=== PATIENT | male | born 1985 | race Caucasian/White ===

== ENCOUNTER 2021-03-04 12:58 | Observation (INO) | payer OTHER ==
[~2021-03-04 12:58] MED LIST: Zofran 4 MG/2 ML VIAL ONE
[2021-03-04] MEDS ORDERED: Zofran 4 MG/2 ML VIAL IV ONE (12:59)
--- NOTE | 2021-03-04 13:30 | ERPHSYRPT ---
- History of Present Illness Source: patient, other (Father) Exam Limitations: other (Pt poor historian) Patient Subjective Stated Complaint: vomiting on arrival, not feeling/acting himself. father came to pick him up to take him to methadone clinic today and noticed pts behavior. pt also was at gas station yesterday afternoon "acting drunk." Triage Nursing Assessment: pt to ED with father with c/o "not acting right." pt goes to methadone clinic and reports being clean for 1 year. pt was at gas station yesterday and PD was called d/t staff reprting that pt was "acting drunk." pts father went to his home today to take him to methadone clinic and noticed pts behavior and brought him immediately to ED. pt did vomit once per father and once more on arrival to ED, denies pain. A&Ox3. skin clammy and pallor. lungs clear and equal bilat, heart sounds clear. Physician History: 35 yo wm w mental status changes which were noticed by his father when he picked him up to take him to his methadone clinic appointment. Pt's SO told his father that he was acting odd at a gas station yesterday. Police were called and thought that pt was intoxicated. Pt arrived somewhat lethargic but with a good airway. He is nauseated and vomited upon arrival. Pt has a small abrasion L periorbital area and gives a vague h/o falling. He did receive his Methadone dose yesterday. Pt denies any alcohol/street drug use. No focal weakness observed. Timing/Duration: yesterday Severity: mild Character of Deficits: altered sensation Deficits: weak Baseline/Normal Cognition: poor alertness (somewhat lethargic but oriented x 3 ) Baseline Gait: walks w/o assistance Associated Symptoms: confusion, fatigue, nausea, vomiting, weakness, No fever, No chills, No loss of consciousness, No insomnia, No muscle spasms, No numbness/tingling in legs/feet, No paresthesia, No ringing in ears, No seizures, No slurred speech, No trouble walking, No vision changes, No chest pain Allergies/Adverse Reactions: No Known Drug Allergies Allergy (Verified 03/04/21 13:19) Home Medications: Cholecalciferol (Vitamin D3) [Vitamin D3] 5,000 unit PO UD 03/04/21 [History] Eszopiclone [Lunesta] 3 mg PO HS 03/04/21 [History] Gabapentin 300 mg [Neurontin 300 mg] 300 mg PO TID 03/04/21 [History] Lisinopril 20 mg [Zestril 20 MG] 40 mg PO DAILY 03/04/21 [History] Sertraline HCl [Zoloft] 100 mg PO DAILY 03/04/21 [History] Simvastatin 80 mg PO DAILY 03/04/21 [History] Hx Tetanus, Diphtheria Vaccination/Date Given: Yes Hx Influenza Vaccination/Date Given: Yes Hx Pneumococcal Vaccination/Date Given: No Immunizations Up to Date: Yes Travel Risk - International Travel Have you traveled outside of the country in past 3 weeks: No - Coronavirus Screening Are you exhibiting any of the following symptoms?: Yes Symptoms: Vomiting/Diarrhea Close contact with a COVID-19 positive Pt in past 14-21 Days: No - Vaccine Status Have you recieved a Covid-19 vaccination: No Personnel Specialist: Moderna - Vaccination Dates Date of 2cond Vaccination (if applicable): unk - Review of Systems Constitutional: No Symptoms, Lethargy, Weakness Eyes: No Symptoms Ears, Nose, & Throat: No Symptoms Respiratory: No Symptoms Cardiac: No Symptoms Abdominal/Gastrointestinal: No Symptoms, Nausea, Vomiting Genitourinary Symptoms: No Symptoms Musculoskeletal: No Symptoms Skin: No Symptoms Neurological: No Symptoms, Lethargy Psychological: Other (Methadone clinic pt) Endocrine: No Symptoms Hematologic/Lymphatic: No Symptoms Immunological/Allergic: No Symptoms - Past Medical History Pertinent Past Medical History: No - Past Surgical History Past Surgical History: No - Social History Smoking Status: Never smoker Exposure to second hand smoke: No Drug Use: narcotics, other Patient Lives Alone: No Significant Family History: no pertinent family hx - Nursing Vital Signs Nursing Vital Signs: Initial Vital Signs Pulse Rate 92 H 03/04/21 12:58 Respiratory Rate 20 03/04/21 12:58 Blood Pressure 171/102 03/04/21 12:58 O2 Sat by Pulse Oximetry 98 03/04/21 12:58 Pain Scale Pain Intensity 0 Hypertensive - [place] Coma Scale Best Eye Response ([place]): (3) open to voice Best Verbal Response ([place]): (5) oriented Best Motor Response ([place]): (6) obeys commands [place] Total: 14 - Physical Exam General Appearance: lethargy Eye Exam: bilateral eye: normal inspection, PERRL, EOMI Ears, Nose, Throat Exam: normal ENT inspection, TMs normal, pharynx normal, moist mucous membranes Neck Exam: normal inspection, non-tender, supple, full range of motion, No meningismus, No mass, No Brudzinski, No Kernig's, No carotid bruit Respiratory: normal breath sounds, lungs clear, airway intact, No respiratory distress Cardiovascular: regular rate/rhythm, normal heart sounds, No murmur Gastrointestinal: soft, normal bowel sounds, No tenderness Back Exam: normal inspection, normal range of motion Extremity Exam: normal inspection, normal range of motion, pelvis stable Peripheral Pulses: carotid (R): 2+, carotid (L): 2+ Mental Status: oriented x 3, lethargy employment service specialist Exam: normal hearing, normal speech, PERRL, No abnormal eye position, No abnormal gag reflex Motor/Sensory: no motor deficit DTR: bicep (R): 2+, bicep (L): 2+ Skin Exam: pale SpO2 Interpretation: normal SpO2: 98 O2 Delivery: Room Air - Course EKG Interpreted by Me: RATE (NSR/R89/Flat T waves/Borderline prolonged QTc/No acute ST changes) - CT Exams Head CT Interpretation: Discussed w/radiologist (NAD) Ordered Tests: Active Orders 24 hr Category Date Time Status Wireless Internet Installer STAT Care 03/04/21 13:04 Completed EKG-ER Only STAT Care 03/04/21 13:00 Completed IV Insertion STAT Care 03/04/21 13:00 Completed cath [Cath for Specimen-Straight] STAT Care 03/04/21 14:25 Completed NPO Diet 03/04/21 15:57 Active HEAD WITHOUT CONTRAST [CT] Stat Exams 03/04/21 13:15 Completed ACETAMINOPHEN Stat Lab 03/04/21 13:55 Completed AMYLASE Stat Lab 03/04/21 13:55 Completed CBC W DIFF AM.LAB Lab 03/05/21 04:00 Ordered CBC W DIFF Stat Lab 03/04/21 13:55 Completed CMP AM.LAB Lab 03/05/21 04:00 Ordered CMP Stat Lab 03/04/21 13:55 Completed ETHYL ALCOHOL Stat Lab 03/04/21 13:55 Completed LIPASE Stat Lab 03/04/21 13:55 Completed SALICYLATE Stat Lab 03/04/21 13:55 Completed TROPONIN Q3H Lab 03/04/21 13:55 Completed TROPONIN Q3H Lab 03/04/21 15:37 Completed TROPONIN Q3H Lab 03/04/21 18:43 Completed TROPONIN Q3H Lab 03/04/21 22:00 Ordered TROPONIN Q3H Lab 03/05/21 01:00 Ordered UA W/RFX UR CULTURE Stat Lab 03/04/21 14:24 Completed Urine Triage Profile Stat Lab 03/04/21 14:24 Completed Transfer Order Routine Transfer 03/04/21 Completed Medication Summary Generic Name Dose Route Start Last Admin Trade Name Fremartinez PRN Reason Stop Dose Admin Gabapentin 300 mg 03/04/21 22:00 Neurontin 300 Mg PO 04/03/21 21:59 TID BESSY Sodium Chloride 1,000 mls @ 100 mls/hr 03/04/21 16:00 03/04/21 16:18 Sodium Chloride 0.9% 1000 Ml IV 04/03/21 15:59 100 mls/hr .Q10H BESSY Administration Ketorolac Tromethamine 30 mg 03/04/21 15:56 Toradol 30 Mg Injection IV 03/09/21 15:55 Q6H PRN PRN PAIN Nicotine 14 mg 03/04/21 19:00 Nicoderm Cq 14 Mg TOP 04/03/21 18:59 Q24H BESSY Ondansetron HCl 4 mg 03/04/21 15:56 Zofran 4 Mg/2 Ml Vial IV 04/03/21 15:55 Q6H PRN PRN NAUSEA/VOMITING Pantoprazole Sodium 40 mg 03/05/21 10:00 Protonix 40 Mg Iv IV 04/04/21 09:59 Q24H10 BESSY Zolpidem Tartrate 10 mg 03/04/21 22:00 Ambien 10 Mg PO 04/03/21 21:59 HS BESSY Discontinued Medications Generic Name Dose Route Start Last Admin Trade Name Fremartinez PRN Reason Stop Dose Admin Ondansetron HCl 4 mg 03/04/21 12:59 03/04/21 13:03 Zofran 4 Mg/2 Ml Vial IV 03/04/21 13:00 4 mg STAT ONE Administration Lab/Rad Data: Laboratory Result Diagrams 03/04/21 13:55 03/04/21 13:55 Laboratory Results 03/04/21 03/04/21 03/04/21 Range/Units 16:08 15:37 14:24 WBC (4.0-10.5) K/mm3 RBC (4.1-5.6) M/mm3 Hgb (12.5-18.0) gm/dl Hct (42-50) % MCV (78-100) fl MCH (26-32) pg MCHC (32-36) g/dl RDW (11.5-14.0) % Plt Count (150-450) K/mm3 MPV (7.5-11.0) fl Gran % (36.0-66.0) % Eos # (Auto) (0-0.5) Absolute Lymphs (auto) (1.0-4.6) Absolute Monos (auto) (0.0-1.3) Lymphocytes % (24.0-44.0) % Monocytes % (0.0-12.0) % Eosinophils % (0.00-5.0) % Basophils % (0.0-0.4) % Absolute Granulocytes (1.4-6.9) Basophils # (0-0.4) Sodium (137-145) mmol/L Potassium (3.5-5.1) mmol/L Chloride (98-107) mmol/L Carbon Dioxide (22-30) mmol/L Anion Gap (5-15) MEQ/L BUN (9-20) mg/dL Creatinine (0.66-1.25) mg/dL Estimated GFR ML/MIN Glucose (74-106) mg/dL Calcium (8.4-10.2) mg/dL Total Bilirubin (0.2-1.3) mg/dL AST (17-59) U/L ALT (0-50) U/L Alkaline Phosphatase (38-126) U/L Troponin I < 0.012 (0.000-0.034) ng/mL Serum Total Protein (6.3-8.2) g/dL Albumin (3.5-5.0) g/dL Amylase (30-110) U/L Lipase (23-300) U/L Urine Color (YELLOW) Urine Appearance (CLEAR) Urine pH (5-6) Ur Specific [place] (1.005-1.025) Urine Protein (Negative) Urine Ketones (NEGATIVE) Urine Blood (0-5) Asad/ul Urine Nitrite (NEGATIVE) Urine Bilirubin (NEGATIVE) Urine Urobilinogen (0-1) mg/dL Ur Leukocyte Esterase (NEGATIVE) Urine WBC (Auto) (0-5) /HPF Urine RBC (Auto) (0-2) /HPF U Epithel Cells (Auto) (FEW) /HPF Urine Bacteria (Auto) (NEGATIVE) /HPF Urine Mucus (Auto) (NEGATIVE) /HPF Urine Culture Reflexed (NO) Urine Glucose (NEGATIVE) mg/dL Salicylates (2-20) mg/dL Urine Opiates Level NEGATIVE (NEGATIVE) Ur Methadone POSITIVE (NEGATIVE) Acetaminophen (10-30) ug/ml Urine Barbiturates NEGATIVE (NEGATIVE) Ur Phencyclidine (PCP) NEGATIVE (NEGATIVE) Urine Amphetamine NEGATIVE (NEGATIVE) U Benzodiazepine Level POSITIVE (NEGATIVE) Urine Cocaine NEGATIVE (NEGATIVE) Urine Marijuana (THC) NEGATIVE (NEGATIVE) Ethyl Alcohol (0-10) mg/dL SARS-CoV-2 (PCR) NEGATIVE (NEGATIVE) Slides for Path Review 03/04/21 03/04/21 03/04/21 Range/Units 14:24 13:55 13:55 WBC (4.0-10.5) K/mm3 RBC (4.1-5.6) M/mm3 Hgb (12.5-18.0) gm/dl Hct (42-50) % MCV (78-100) fl MCH (26-32) pg MCHC (32-36) g/dl RDW (11.5-14.0) % Plt Count (150-450) K/mm3 MPV (7.5-11.0) fl Gran % (36.0-66.0) % Eos # (Auto) (0-0.5) Absolute Lymphs (auto) (1.0-4.6) Absolute Monos (auto) (0.0-1.3) Lymphocytes % (24.0-44.0) % Monocytes % (0.0-12.0) % Eosinophils % (0.00-5.0) % Basophils % (0.0-0.4) % Absolute Granulocytes (1.4-6.9) Basophils # (0-0.4) Sodium 140 (137-145) mmol/L Potassium 3.7 (3.5-5.1) mmol/L Chloride 101 (98-107) mmol/L Carbon Dioxide 26 (22-30) mmol/L Anion Gap 16.5 H (5-15) MEQ/L BUN 12 (9-20) mg/dL Creatinine 0.80 (0.66-1.25) mg/dL Estimated GFR > 60.0 ML/MIN Glucose 126 H (74-106) mg/dL Calcium 9.2 (8.4-10.2) mg/dL Total Bilirubin 0.40 (0.2-1.3) mg/dL AST 26 (17-59) U/L ALT 14 (0-50) U/L Alkaline Phosphatase 94 (38-126) U/L Troponin I (0.000-0.034) ng/mL Serum Total Protein 8.1 (6.3-8.2) g/dL Albumin 4.6 (3.5-5.0) g/dL Amylase 73 (30-110) U/L Lipase 63 (23-300) U/L Urine Color YELLOW (YELLOW) Urine Appearance CLEAR (CLEAR) Urine pH 8.0 (5-6) Ur Specific [place] 1.021 (1.005-1.025) Urine Protein 30 (Negative) Urine Ketones NEGATIVE (NEGATIVE) Urine Blood NEGATIVE (0-5) Asad/ul Urine Nitrite NEGATIVE (NEGATIVE) Urine Bilirubin NEGATIVE (NEGATIVE) Urine Urobilinogen NEGATIVE (0-1) mg/dL Ur Leukocyte Esterase TRACE (NEGATIVE) Urine WBC (Auto) 0-2 (0-5) /HPF Urine RBC (Auto) 11-15 (0-2) /HPF U Epithel Cells (Auto) NONE (FEW) /HPF Urine Bacteria (Auto) NONE (NEGATIVE) /HPF Urine Mucus (Auto) SLIGHT (NEGATIVE) /HPF Urine Culture Reflexed NO (NO) Urine Glucose NEGATIVE (NEGATIVE) mg/dL Salicylates < 1.0 L (2-20) mg/dL Urine Opiates Level (NEGATIVE) Ur Methadone (NEGATIVE) Acetaminophen < 10 L (10-30) ug/ml Urine Barbiturates (NEGATIVE) Ur Phencyclidine (PCP) (NEGATIVE) Urine Amphetamine (NEGATIVE) U Benzodiazepine Level (NEGATIVE) Urine Cocaine (NEGATIVE) Urine Marijuana (THC) (NEGATIVE) Ethyl Alcohol < 10 (0-10) mg/dL SARS-CoV-2 (PCR) (NEGATIVE) Slides for Path Review 03/04/21 03/04/21 Range/Units 13:55 13:55 WBC 8.2 (4.0-10.5) K/mm3 RBC 4.15 (4.1-5.6) M/mm3 Hgb 12.4 L (12.5-18.0) gm/dl Hct 38.0 L (42-50) % MCV 91.6 (78-100) fl MCH 29.9 (26-32) pg MCHC 32.6 (32-36) g/dl RDW 13.2 (11.5-14.0) % Plt Count 192 (150-450) K/mm3 MPV 10.3 (7.5-11.0) fl Gran % 89.0 H (36.0-66.0) % Eos # (Auto) 0.02 (0-0.5) Absolute Lymphs (auto) 0.54 L (1.0-4.6) Absolute Monos (auto) 0.33 (0.0-1.3) Lymphocytes % 6.6 L (24.0-44.0) % Monocytes % 4.0 (0.0-12.0) % Eosinophils % 0.2 (0.00-5.0) % Basophils % 0.2 (0.0-0.4) % Absolute Granulocytes 7.26 H (1.4-6.9) Basophils # 0.02 (0-0.4) Sodium (137-145) mmol/L Potassium (3.5-5.1) mmol/L Chloride (98-107) mmol/L Carbon Dioxide (22-30) mmol/L Anion Gap (5-15) MEQ/L BUN (9-20) mg/dL Creatinine (0.66-1.25) mg/dL Estimated GFR ML/MIN Glucose (74-106) mg/dL Calcium (8.4-10.2) mg/dL Total Bilirubin (0.2-1.3) mg/dL AST (17-59) U/L ALT (0-50) U/L Alkaline Phosphatase (38-126) U/L Troponin I < 0.012 (0.000-0.034) ng/mL Serum Total Protein (6.3-8.2) g/dL Albumin (3.5-5.0) g/dL Amylase (30-110) U/L Lipase (23-300) U/L Urine Color (YELLOW) Urine Appearance (CLEAR) Urine pH (5-6) Ur Specific [place] (1.005-1.025) Urine Protein (Negative) Urine Ketones (NEGATIVE) Urine Blood (0-5) Asad/ul Urine Nitrite (NEGATIVE) Urine Bilirubin (NEGATIVE) Urine Urobilinogen (0-1) mg/dL Ur Leukocyte Esterase (NEGATIVE) Urine WBC (Auto) (0-5) /HPF Urine RBC (Auto) (0-2) /HPF U Epithel Cells (Auto) (FEW) /HPF Urine Bacteria (Auto) (NEGATIVE) /HPF Urine Mucus (Auto) (NEGATIVE) /HPF Urine Culture Reflexed (NO) Urine Glucose (NEGATIVE) mg/dL Salicylates (2-20) mg/dL Urine Opiates Level (NEGATIVE) Ur Methadone (NEGATIVE) Acetaminophen (10-30) ug/ml Urine Barbiturates (NEGATIVE) Ur Phencyclidine (PCP) (NEGATIVE) Urine Amphetamine (NEGATIVE) U Benzodiazepine Level (NEGATIVE) Urine Cocaine (NEGATIVE) Urine Marijuana (THC) (NEGATIVE) Ethyl Alcohol (0-10) mg/dL SARS-CoV-2 (PCR) (NEGATIVE) Slides for Path Review YES - Progress Progress: improved Progress Note: 03/04/21 15:[address] Bal 03/04/21 16:00 Pt w good airway the entire visit but somewhat lethargic, so admitted for observation. 03/04/21 19:25 Pt's lethargy most likely due to Benzo use which is not prescribed per Inspect report. Discussed with : Juan Luis Counseled pt/family regarding: lab results, diagnosis, rad results - Departure Departure Disposition: Observation Clinical Impression: Polysubstance abuse Condition: Stable Critical Care Time: No
--- NOTE | 2021-03-04 13:39 | XRAY ---
Indication: Mental status change. Left eye contusion. Multiple contiguous axial images obtained through the head without contrast. Comparison: None Anatomic variant for cavum septum callosum. No acute intracranial hemorrhage, abnormal extra-axial fluid collection, or mass effect. Fourth ventricle is midline without hydrocephalus. Mata-white matter differentiation preserved. Bony calvarium intact. Visualized paranasal sinuses and mastoid air cells are clear. Impression: Normal CT head without contrast exam.
[2021-03-04 14:04] LABS: Absolute Neutrophil Ct (ANC) 7.26 (1.4-6.9); BASOPHIL % 0.2 % (0.0-0.4); Basophil (Absolute #) 0.02 (0-0.4); Eosinophil % 0.2 % (0.00-5.0); Eosinophil (Absolute #) 0.02 (0-0.5); Hemoglobin 12.4 gm/dl (12.5-18.0); Lymphocyte (Absolute #) 0.54 (1.0-4.6); Lymphocytes % 6.6 % (24.0-44.0); Mean Cell Volume 91.6 fl (78-100); Mean Corpuscular Hemoglobin 29.9 pg (26-32); Mean Corpuscular Hgb Concent. 32.6 g/dl (32-36); Mean Platelet Volume 10.3 fl (7.5-11.0); Monocyte (Absolute #) 0.33 (0.0-1.3); Platelet Count 192 K/mm3 (150-450); Red Blood Count 4.15 M/mm3 (4.1-5.6); Red Cell Distribution Width 13.2 % (11.5-14.0); White Blood Count 8.2 K/mm3 (4.0-10.5)
[2021-03-04 14:09] LABS: ALBUMIN 4.6 g/dL (3.5-5.0); ALKALINE PHOSPHATASE 94 U/L (38-126); AMYLASE 73 U/L (30-110); ANION GAP 16.5 MEQ/L (5-15); BLOOD UREA NITROGEN 12 mg/dL (9-20); CHLORIDE 101 mmol/L (98-107); Calcium 9.2 mg/dL (8.4-10.2); Carbon Dioxide 26 mmol/L (22-30); EST GLOMERULAR FILTRATION RATE > 60.0 ML/MIN; Glucose 126 mg/dL (74-106); LIPASE 63 U/L (23-300); Potassium 3.7 mmol/L (3.5-5.1); SGOT/AST 26 U/L (17-59); SGPT/ALT 14 U/L (0-50); SODIUM 140 mmol/L (137-145); Total Protein 8.1 g/dL (6.3-8.2)
[2021-03-04 14:11] LABS: ACETAMINOPHEN < 10 ug/ml (10-30); ETHYL ALCOHOL < 10 mg/dL (0-10); SALICYLATE < 1.0 mg/dL (2-20)
[2021-03-04 14:39] LABS: Appearance CLEAR (CLEAR); Bilirubin NEGATIVE (NEGATIVE); Blood NEGATIVE Ery/ul (0-5); Glucose NEGATIVE (NEGATIVE); Ketones NEGATIVE (NEGATIVE); Leukocyte Esterase TRACE (NEGATIVE); Mucus SLIGHT /HPF (NEGATIVE); Nitrite NEGATIVE (NEGATIVE); Protein,Urine Dip 30 (Negative); Specific Gravity 1.021 (1.005-1.025); Urobilinogen NEGATIVE mg/dL (0-1); WBC 0-2 /HPF (0-5)
[2021-03-04 14:51] LABS: Amphetamine,Urine NEGATIVE (NEGATIVE); Barbiturate,Urine NEGATIVE (NEGATIVE); Benzodiazepine,Urine POSITIVE (NEGATIVE); Cocaine,Urine NEGATIVE (NEGATIVE); Methadone,Urine POSITIVE (NEGATIVE); PCP,Urine NEGATIVE (NEGATIVE); THC,Urine NEGATIVE (NEGATIVE)
[2021-03-04 15:02] LABS: Opiate,Urine NEGATIVE (NEGATIVE)
[2021-03-04 15:37] LABS: Slide Review 1 YES
[2021-03-04] MEDS ORDERED: Zofran 4 MG/2 ML VIAL IV PRN (15:56)
[2021-03-04] MEDS ORDERED: TORAdol 30 mg Injection IV PRN (15:56)
[2021-03-04] MEDS: Sodium Chloride 0.9% 1000 ML 1,000 ML IV SCH (16:18)
[2021-03-04] MEDS ORDERED: NICODERM CQ 14 MG TOP SCH (19:00)
[2021-03-04] MEDS: NEURONTIN 300 MG PO SCH (20:55)
[2021-03-04] MEDS ORDERED: Ambien 10 MG PO SCH (22:00)
[2021-03-05] MEDS: Sodium Chloride 0.9% 1000 ML 1,000 ML IV SCH (02:02)
[2021-03-05 05:45] LABS: Absolute Neutrophil Ct (ANC) 4.34 (1.4-6.9); BASOPHIL % 0.2 % (0.0-0.4); Basophil (Absolute #) 0.01 (0-0.4); Eosinophil % 1.5 % (0.00-5.0); Eosinophil (Absolute #) 0.09 (0-0.5); Hematocrit 34.2 % (42-50); Hemoglobin 11.3 gm/dl (12.5-18.0); Lymphocyte (Absolute #) 1.05 (1.0-4.6); Lymphocytes % 17.9 % (24.0-44.0); Mean Cell Volume 90.7 fl (78-100); Mean Platelet Volume 9.9 fl (7.5-11.0); Monocyte (Absolute #) 0.37 (0.0-1.3); Monocytes % 6.3 % (0.0-12.0); Neutrophil % 74.1 % (36.0-66.0); Platelet Count 197 K/mm3 (150-450); Red Blood Count 3.77 M/mm3 (4.1-5.6); Red Cell Distribution Width 13.1 % (11.5-14.0); White Blood Count 5.9 K/mm3 (4.0-10.5)
[2021-03-05 06:00] LABS: ALBUMIN 3.9 g/dL (3.5-5.0); ALKALINE PHOSPHATASE 79 U/L (38-126); ANION GAP 14.8 MEQ/L (5-15); BLOOD UREA NITROGEN 10 mg/dL (9-20); CHLORIDE 103 mmol/L (98-107); Calcium 8.7 mg/dL (8.4-10.2); Carbon Dioxide 23 mmol/L (22-30); Creatinine 1 0.71 mg/dL (0.66-1.25); EST GLOMERULAR FILTRATION RATE > 60.0 ML/MIN; Glucose 101 mg/dL (74-106); Potassium 3.5 mmol/L (3.5-5.1); SGOT/AST 27 U/L (17-59); SGPT/ALT 12 U/L (0-50); SODIUM 137 mmol/L (137-145)
[2021-03-05] MEDS ORDERED: NON-FORMULARY ITEM (Cholecalciferol (Vitamin D3) [Vitamin D3] 5,000 UNIT) PO SCH (07:15)
[2021-03-05] MEDS ORDERED: DOLOPHINE 10MG Tablet PO SCH (09:45)
[2021-03-05] MEDS ORDERED: DOLOPHINE 10MG Tablet PO ONE (09:49)
[2021-03-05] MEDS ORDERED: ZOLOFT 50 MG TABLET PO SCH (10:00)
[2021-03-05] MEDS ORDERED: Zestril 20 MG PO SCH (10:00)
[2021-03-05] MEDS ORDERED: ZOCOR 20MG PO SCH (10:00)
[2021-03-05] MEDS ORDERED: NON-FORMULARY ITEM (Simvastatin [Simvastatin] 80 MG) PO SCH (10:00)
[2021-03-05] MEDS ORDERED: NON-FORMULARY ITEM (Sertraline Hcl [Zoloft] 100 MG) PO SCH (10:00)
[2021-03-05] MEDS ORDERED: PROTONIX 40 MG IV IV SCH (10:00)
[2021-03-05] MEDS: NEURONTIN 300 MG PO SCH (10:17)
[2021-03-05 10:25] VITALS: BP 131/91; PULSE 88; O2SAT 98
--- NOTE | 2021-03-11 06:50 | PCM.SSS ---
History of Present Illness - Chief Complaint Chief Complaint: POLYSUBSTANCE ABUSE Date: 03/05/21 History of Present Illness: is a 35 year old male. Presented to ER last evening very incoherent, and not acting himself, pt. was noted to be not quite right when his father picked him up at his local gas station to take him for his dosing at Methadone clinic. Upon arrival at methadone clinic, his dosing was denied and he was advised to go to ER for further evaluation. Pt. denies knowingly ingesting any substances but notes his girlfriend and him had been arguing and she likes benzodiazepines for recreational abuse, and may have slipped him one. - Review of Systems Constitutional: No Fever, No Chills Eyes: No Symptoms Ears, Nose, & Throat: No Symptoms Respiratory: No Cough, No Short Of Breath Cardiac: No Chest Pain, No Edema, No Syncope Abdominal/Gastrointestinal: No Abdominal Pain, No Nausea, No Vomiting, No Diarrhea Genitourinary Symptoms: No Dysuria Musculoskeletal: No Back Pain, No Neck Pain Skin: No Rash Neurological: No Dizziness, No Focal Weakness, No Sensory Changes Psychological: No Symptoms Endocrine: No Symptoms Hematologic/Lymphatic: No Symptoms Immunological/Allergic: No Symptoms Medications & Allergies Home Medications: Home Medication List Cholecalciferol (Vitamin D3) [Vitamin D3] 5,000 unit PO UD 03/04/21 [History C onfirmed 03/04/21] Eszopiclone [Lunesta] 3 mg PO HS 03/04/21 [History Confirmed 03/04/21] Gabapentin 300 mg [Neurontin 300 mg] 300 mg PO TID 03/04/21 [History Confirmed 03/04/21] Lisinopril 20 mg [Zestril 20 MG] 40 mg PO DAILY 03/04/21 [History Confirmed 03/04/21] Sertraline HCl [Zoloft] 100 mg PO DAILY 03/04/21 [History Confirmed 03/04/21] Simvastatin 80 mg PO DAILY 03/04/21 [History Confirmed 03/04/21] Allergies/Adverse Reactions: Allergies Allergy/AdvReac Type Severity Reaction Status Date / Time No Known Drug Allergies Allergy Verified 03/04/21 13:19 - Past Medical History Past Medical History: No Neurological History: Seizures ENT History: No Pertinent History Cardiac History: High Cholesterol, Hypertension Respiratory History: No Pertinent History Endocrine Medical History: No Pertinent History Musculoskelatal History: Fractures GI Medical History: No Pertinent History History: No Pertinent History Pyscho-Social History: Anxiety, Panic Disorder Male Reproductive Disorders: No Pertinent History - Past Surgical History Past Surgical History: No Other Surgical History: GANGLION CYST REMOVAL. RIGHT WRIST X 2, ACDF SURGERY. - Social History Smoking Status: Never smoker Exposure to second hand smoke: No Alcohol: None Drug Use: narcotics, other Significant Family History: no pertinent family hx - Physical Exam General Appearance: no apparent distress, alert Neurologic Exam: alert, oriented x 3, cooperative, normal mood/affect, nml cerebellar function, nml station & gait, sensation nml, No motor deficits Eye Exam: PERRL/EOMI, eyes nml inspection Ears, Nose, Throat Exam: normal ENT inspection, TMs normal, pharynx normal, moist mucous membranes Neck Exam: normal inspection, non-tender, supple, full range of motion Respiratory Exam: normal breath sounds, lungs clear, No respiratory distress Cardiovascular Exam: regular rate/rhythm, normal heart sounds, normal peripheral pulses Gastrointestinal/Abdomen Exam: soft, normal bowel sounds, No tenderness, No mass Back Exam: normal inspection, normal range of motion, No CVA tenderness, No vertebral tenderness Extremity Exam: normal inspection, normal range of motion, pelvis stable Skin Exam: normal color, warm, dry, No rash Lymphatic Exam: No adenopathy Assessment/Plan (1) Polysubstance abuse Status: Acute Code(s): F19.10 - OTHER PSYCHOACTIVE SUBSTANCE ABUSE, UNCOMPLICATED Hospital Summary - Hospital Course Hospital Course: Pt. was admitted for a period of sobering, monitering and evaluation. Pt. had returned to his baseline function by the following morning and was stable and ready for discharge. - Vitals & Intake/Output Vital Signs: Vital Signs Temperature 98.0 F 03/05/21 08:00 Pulse Rate 88 03/05/21 10:15 Respiratory Rate 18 03/05/21 10:15 Blood Pressure 131/91 03/05/21 10:15 O2 Sat by Pulse Oximetry 98 03/05/21 10:15 - Lab Result Diagrams: 03/05/21 05:40 03/05/21 05:40 - Discharge Discharge Date: 03/05/21 Disposition: Home, Self-Care Condition: Stable Prescriptions: Continue Cholecalciferol (Vitamin D3) [Vitamin D3] 5,000 unit PO UD Lisinopril 20 mg [Zestril 20 MG] 40 mg PO DAILY Eszopiclone [Lunesta] 3 mg PO HS Simvastatin 80 mg PO DAILY Sertraline HCl [Zoloft] 100 mg PO DAILY Gabapentin 300 mg [Neurontin 300 mg] 300 mg PO TID Instructions: Seizures, Adult (DC), Drug Abuse and Drug Addiction (DC) Follow up with: CURTIS PALMA [ACTIVE STAFF] - 03/12/21 9:45 am Forms: Discharge Instructions, Patient Portal Information
== END 2021-03-05 10:57 | disposition home or self-care (01) ==
LOC: ED 12:58 → MED SURG 17:25
PROVIDERS: ADMIT Family Medicine; ATTEND Family Medicine
DX: F19.10 Other psychoactive substance abuse, uncomplicated (principal); R41.82 Altered mental status, unspecified; R11.2 Nausea with vomiting, unspecified; S00.212A Abrasion of left eyelid and periocular area, initial encounter; R53.83 Other fatigue; Z79.899 Other long term (current) drug therapy; R19.7 Diarrhea, unspecified; Z20.828 Contact with and (suspected) exposure to other viral communicable diseases; I10 Essential (primary) hypertension; E78.00 Pure hypercholesterolemia, unspecified
CPT/HCPCS: 36000; 36415; 70450; 80053; 80307; 81001; 82150; 83690; 84484; 85025; 93005; 93041; 93268; 96374; 99285; G0378; G0480; P9612; U0003; J1885; J2405; A9270-GY